=== PATIENT | male | born 1995 | race African-American/Black ===

== ENCOUNTER 2020-01-31 01:32 | Emergency (ER) | payer SELFPAY ==
[2020-01-31 02:01] LABS: Absolute Lymphocytes (CBC) 3.8 K/uL (0.7-4.9); Basophils % 0.7 % (0-1.3); Hematocrit 43.8 % (39.6-49.0); Lymphocytes % 29.7 % (15.3-44.8); RBC Red Blood Cell Count 5.02 M/uL (4.33-5.43)
[2020-01-31 02:04] LABS: Protime INR 1.09
[2020-01-31 02:15] LABS: ALT/SGPT 22 U/L (12-78); AST/SGOT 25 U/L (15-37); Albumin 4.1 g/dL (3.4-5.0); Alkaline Phosphatase 90 U/L (45-117); BUN Blood Urea Nitrogen 15 mg/dL (7-18); Bicarbonate 29 mmol/L (21-32); Bilirubin Direct 0.3 mg/dL (0-0.2); Bilirubin Total 1.3 mg/dL (0.2-1.0); Glucose Level 66 mg/dL (74-106); Potassium 4.3 mmol/L (3.5-5.1); Protein, Total 7.5 g/dL (6.4-8.2); Sodium Level 139 mmol/L (136-145)
[2020-01-31 04:30] LABS: Barbiturates NEGATIVE (NEGATIVE); Benzodiazepines POSITIVE (NEGATIVE); Cocaine NEGATIVE (NEGATIVE); METHAMPHETAM POSITIVE (NEGATIVE); Methadone NEGATIVE (NEGATIVE); Opiates NEGATIVE (NEGATIVE); Phencyclidine NEGATIVE (NEGATIVE); THC Cannibis POSITIVE (NEGATIVE)
[2020-01-31 04:31] LABS: Urine Blood NEGATIVE (NEG); Urine Glucose NEGATIVE (NEG); Urine Protein NEGATIVE (NEG); Urine Specific Gravity >1.030 (1.005-1.030)
[2020-01-31] MEDS ORDERED: TETANUS & DIPHTHERIA TOX,ADULT 0.5 ML VIAL ONE (06:49)
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
[2020-01-31 10:12] VITALS: TEMP 98.3
[2020-01-31 10:14] VITALS: BP 135/71; O2SAT 99
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
== END 2020-01-31 09:43 | disposition home or self-care (01) ==
LOC: ER 01:32
DX: F10.129 Alcohol abuse with intoxication, unspecified (principal); Z23 Encounter for immunization
CPT/HCPCS: 36415; 70450; 72125; 80048; 80076; 80307; 80320; 80329; 81003; 85025; 85610; 85730; 90471; 90714; 93005; 99285; G0390